=== PATIENT | male | born 1985 | race Caucasian/White ===

== ENCOUNTER 2019-04-04 08:20 | Observation (INO) | payer BC ==
[~2019-04-04] VITALS: Ht 175.3 cm; Wt 94.0 kg
[2019-04-04] VITALS (10 sets, daily range): BP systolic 107–146; BP diastolic 61–79; PULSE 65–98; TEMP 98.6–99.7
[2019-04-04 08:48] LABS: HEMATOCRIT 42.4 % (42.0-52.0); HEMOGLOBIN 15.3 g/dl (13.5-18.0); MEAN CELL VOLUME 89 fl (80.0-100.0); MEAN CORPUSCULAR HEMOGLOBIN 32 pg (27.0-31.0); MEAN CORPUSCULAR HGB CONC 36 g/dl (33.0-37.0); MEAN PLATELET VOLUME 9.5 fl (7.4-10.4); PLATELET COUNT 267 K/mm3 (130-400); RED BLOOD COUNT 4.79 M/mm3 (4.20-5.60)
[2019-04-04 09:01] LABS: BILIRUBIN,TOTAL 2.8 mg/dL (0.0-1.0); C-REACTIVE PROTEIN 4.5 mg/dL (0.0-0.9); CALCIUM 9.5 mg/dL (8.4-10.2); CREATININE, serum 0.7 (0.66-1.25); LYMPHOCYTE 5 % (20.0-51.0); NEUTROPHILS 91 % (42.0-75.2); PLATELET ESTIMATE NORMAL (NORMAL); POTASSIUM 3.5 mmol/L (3.4-5.0); TOTAL PROTEIN 8.4 gm/dL (6.4-8.2)
--- NOTE | 2019-04-04 15:00 | NUR ---
Assessment completed, alert/oriented, vital signs stable, reporting constand RUQ pain that he is rating 7-9/10, we have been using dilauid IV and this has not been helping much so i have called and got order for Dilaudid dose increased as well as added Toradol IV q6PRN/ I gave a dose of Toradol and patient stated this helped significantly, obtained informed consent from patient for Laproscopic Cholecysectomy, he has been NPO, significant other present in the room, denies other needs at this time
--- NOTE | 2019-04-04 16:20 | NUR ---
Patient is going down for surgery at this time
--- NOTE | 2019-04-04 20:00 | NUR ---
PT ARRIVED VIA BED FROM PACU, A/O X4. PT DENIED PAIN OR DISCOMFORT, SURGICAL SITES X4, COVERED WITH BANAIDS WHICH ARE CLEAN, DRY, AND INTACT. PT'S GIRLFRIEND BROUGHT HIM SUGAR FREE JELLO AND GATORAID. PT ATE THE JELLO AND HAS BEEN DRINKING THE GATORAID, ALONG WITH SOME WATER. PT HAS NO NEEDS AT THIS TIME CALL LIGHT WITHIN REACH.
--- NOTE | 2019-04-04 21:30 | NUR ---
PT HAS BEEN UP TO USE THE BATHROOM, GAIT STEADY, TILL NO C/O PAIN OR DISCOMFORT. CALL LIGHT WITHIN REACH.
--- NOTE | 2019-04-04 22:32 | NUR ---
PT ASSISTED UP OUT OF BED TO USE BATHROOM. PT'S GAIT IS STEADY. PT IS A/O X4, DENIES PAIN AT THIS TIME. NO FURTHER NEEDS AND CALL LIGHT WITHIN REACH.
[2019-04-05 04:24] VITALS: BP 119/67; PULSE 71; TEMP 98.2
--- NOTE | 2019-04-05 06:38 | NUR ---
UNEVENTFUL NIGHT, PT SLEPT/RESTED WITH NO C/O PAIN OR DISCOMFORT. NO NEEDS AT THIS TIME, CALL LIGHT WITHIN REACH.
[2019-04-05 06:56] LABS: BASO % 0.1 % (0.0-2.0); GRAN % 89.7 % (42.2-75.2); LYMPH # 0.6 (1.2-3.4); MEAN CELL VOLUME 89 fl (80.0-100.0); MEAN CORPUSCULAR HGB CONC 36 g/dl (33.0-37.0); MEAN PLATELET VOLUME 9.5 fl (7.4-10.4); MONO # 0.9 (0.1-0.6); MONO % 5.5 % (1.7-9.3); PLATELET COUNT 212 K/mm3 (130-400); RED BLOOD COUNT 3.97 M/mm3 (4.20-5.60); REDCELL DISTRIBUTION WIDTH-CV 12.1 % (11.5-14.5)
[2019-04-05 07:02] LABS: HEMATOCRIT 35.5 % (42.0-52.0); HEMOGLOBIN 12.7 g/dl (13.5-18.0); MEAN CORPUSCULAR HEMOGLOBIN 32 pg (27.0-31.0)
[2019-04-05 07:04] LABS: ALBUMIN 3.7 gm/dL (3.5-5.0); BILIRUBIN,TOTAL 2.2 mg/dL (0.0-1.0); CALCIUM 8.4 mg/dL (8.4-10.2); CREATININE, serum 0.64 (0.66-1.25); POTASSIUM 3.8 mmol/L (3.4-5.0); TOTAL PROTEIN 6.3 gm/dL (6.4-8.2)
[2019-04-05 08:16] VITALS: BP 123/73; PULSE 78; TEMP 98.1
--- NOTE | 2019-04-05 09:00 | NUR ---
Patient alert and oriented, answers questions appropraitely. See assessment. Abdomen soft, non tender, non distended. +Flatus. Bowel sounds hyperactive. Lap sites with edges well approximated, no redness or drainage noted. No c/o pain or discomfort at this time.
[2019-04-05] MEDS ORDERED: LEVAQUIN 750MG750 M1 PO (11:55)
[2019-04-05] MEDS ORDERED: NORCO 325 MG-51 TAB PO (11:55)
[2019-04-05 12:24] VITALS: BP 135/67; PULSE 86; TEMP 98.3
--- NOTE | 2019-04-05 13:18 | NUR ---
Discharge reviewed with patient and spouse, verbalized understanding. Discharged ambulatory to auto/home with family at 1100.
== END 2019-04-05 13:00 | disposition home or self-care (01) ==
LOC: COL.ER 08:20 → JCC 09:42
PROVIDERS: Physician Assistant; ADMIT Surgery
DX: K81.0 Acute cholecystitis (principal); K82.A1 Gangrene of gallbladder in cholecystitis; K76.0 Fatty (change of) liver, not elsewhere classified; Z90.49 Acquired absence of other specified parts of digestive tract
CPT/HCPCS: G0378; J0330; J1100; J1170; J1885; J1956; J2250; J2405; J2704; J3010; J7030; J7120; Q9967

== ENCOUNTER 2023-09-05 12:05 | Emergency (ER) | payer BC ==
[~2023-09-05] VITALS: Ht 175.3 cm; Wt 98.2 kg
[~2023-09-05 12:05] MED LIST: LEVAQUIN 750MG750 M1 PO; NORCO 325 MG-51 TAB PO
[2023-09-05] MEDS ORDERED: Acetaminophen 500 MG TAB PO ONE (12:45)
[2023-09-05] MEDS ORDERED: LR 1,000 ML IV ONE (12:45)
[2023-09-05 12:48] LABS: BASO % 0.4 % (0.0-2.0); EOS % 0.1 % (0.0-4.0); GRAN # 6.7 K/mm3 (1.4-6.5); GRAN % 82.1 % (42.2-75.2); HEMATOCRIT 45.2 % (42.0-52.0); HEMOGLOBIN 16.8 g/dl (13.5-18.0); LYMPH # 1.1 K/mm3 (1.2-3.4); LYMPH % 13.3 % (20.0-51.0); MEAN CELL VOLUME 86 fl (80.0-100.0); MEAN CORPUSCULAR HEMOGLOBIN 32 pg (27-31); MEAN CORPUSCULAR HGB CONC 37 g/dl (33.0-37.0); MEAN PLATELET VOLUME 9.5 fl (7.4-10.4); MONO # 0.3 K/mm3 (0.1-0.6); MONO % 3.7 % (1.7-9.3); PLATELET COUNT 219 K/mm3 (130-400); RED BLOOD COUNT 5.27 M/mm3 (4.20-5.60); REDCELL DISTRIBUTION WIDTH-CV 11.9 % (11.5-14.5)
[2023-09-05 13:02] LABS: ALANINE AMINOTRANSFERASE 111 U/L (0-55); ALBUMIN 4.7 gm/dL (3.5-5.0); ALKALINE PHOSPHATASE 59 U/L (40-150); ANION GAP 14 mmol/L (7-16); AST,SGOT 63 U/L (5-34); BILIRUBIN,TOTAL 3.7 mg/dL (0.2-1.2); BLOOD UREA NITROGEN 10 mg/dL (9-21); CALCIUM 9.4 mg/dL (8.4-10.2); CARBON DIOXIDE 19 mmol/L (22-29); CHLORIDE 106 mmol/L (98-107); CREATININE, serum 0.86 mg/dL (0.72-1.25); GLUCOSE 127 mg/dL (70-99); LIPASE 20 U/L (8-78); POTASSIUM 3.5 mmol/L (3.5-4.5); SODIUM 139 mmol/L (136-145)
[2023-09-05 13:11] LABS: TROPONIN-I < 0.010 ng/mL (0.00-0.033)
[2023-09-05 15:30] VITALS: BP 140/107; PULSE 76; TEMP 99
== END 2023-09-05 15:50 | disposition home or self-care (01) ==
LOC: COL.ER 12:05
PROVIDERS: Emergency Medicine
DX: R25.2 Cramp and spasm (principal)
CPT/HCPCS: J7120

== ENCOUNTER → 2023-09-12 | Outpatient (CLI) | payer BC | LOC: COL.RAD 10:49 | DX: R17 Unspecified jaundice (principal) ==